=== PATIENT | female | born 1965 | race Caucasian/White ===

== ENCOUNTER 2017-05-01 16:15 | Emergency (ER) | payer MEDICARE, OTHER ==
[~2017-05-01] VITALS: Ht 170.2 cm; Wt 59.0 kg
[~2017-05-01 16:15] MED LIST: ASPI-807 PO; AZAT50TA18 PO; DICL75TA5; DULO60CA45 PO; FAMO-130; GABA-534; HYDR200T; MELA10CA; METO-357; OMEP40CA37; RANI150C4; SIMV5TAB2; TRAM50TA; TRAM50TA2; TRAZ-144
[2017-05-01 16:27] VITALS: BP 119/78
[2017-05-01] MEDS ORDERED: KETOROLAC TROMETHAMINE INJ 60 MG/2 ML VIAL IM ONE (17:00)
[2017-05-01] MEDS ORDERED: ONDANSETRON 4 MG TAB.RAPDIS ONE (17:12)
[2017-05-01] MEDS ORDERED: MORPHINE SULFATE INJ 4 MG/ML DISP.SYRIN ONE (17:12)
[2017-05-01] MEDS ORDERED: MORPHINE SULFATE INJ 2 MG/ML DISP.SYRIN IM ONE (17:30)
[2017-05-01] MEDS ORDERED: ONDANSETRON 4 MG TAB.RAPDIS SL ONE (17:30)
== END 2017-05-01 18:06 | disposition home or self-care (01) ==
LOC: ER 16:17
DX: M25.561 Pain in right knee (principal); I10 Essential (primary) hypertension; M06.9 Rheumatoid arthritis, unspecified; K21.9 Gastro-esophageal reflux disease without esophagitis; Z88.0 Allergy status to penicillin; Z88.1 Allergy status to other antibiotic agents; Z86.73 Personal history of transient ischemic attack (TIA), and cerebral infarction without residual deficits; Z88.8 Allergy status to other drugs, medicaments and biological substances; Z79.82 Long term (current) use of aspirin
CPT/HCPCS: 96372; 99283; A4606; J2270; Q0162; Z7610